=== PATIENT | male | born 1995 | race Caucasian/White ===

== ENCOUNTER 2017-04-21 20:59 | Emergency (ER) | payer SELFPAY ==
[~2017-04-21] VITALS: Ht 185.4 cm; Wt 106.6 kg
[2017-04-21 21:19] VITALS: BP_SYST 162
[2017-04-21] MEDS ORDERED: KETOROLAC TROMETHAMINE 60 MG/2 ML VIAL IM ONE (21:30)
[2017-04-21 22:12] VITALS: BP_SYST 133
== END 2017-04-21 22:12 | disposition home or self-care (01) ==
LOC: SED 20:59
DX: M54.5 Low back pain (principal); R03.0 Elevated blood-pressure reading, without diagnosis of hypertension; V19.9XXA Pedal cyclist (driver) (passenger) injured in unspecified traffic accident, initial encounter; Y93.I9 Activity, other involving external motion; Y92.89 Other specified places as the place of occurrence of the external cause; Y99.8 Other external cause status
CPT/HCPCS: 72100; 96372; 99284; J1885